=== PATIENT | female | born 1975 | race Caucasian/White ===

== ENCOUNTER 2017-04-21 20:33 | Emergency (ER) | payer OTHER ==
[2017-04-21 20:58] VITALS: BP 126/67; PULSE 65; TEMP 97.9; BMI 31.8
--- NOTE | 2017-04-21 22:02 | PDOC ---
Attending Attestation - Resident Resident Name: Zane Pereyra - ED Attending Attestation I have performed the following: I have examined & evaluated the patient, The case was reviewed & discussed with the resident, I agree w/resident's findings & plan, Exceptions are as noted - HPI HPI: 41 yo F presents with headache intermittently for the past 2 months. She states that she had a head injury 3 years ago where she fell and hit her head on ice. She states that since then, she has had headaches intermittently, usually occipital, bilateral, radiating to the temples B/L. She states that the headaches have been worse for the past 2 months, and now she has had eye pain associated with it, bilateral, but L>R. No vision changes. +Photophobia. No phonophobia. No neck stiffness. Headaches are not associated with weather changes or stress. - Physicial Exam PE: GENERAL: Awake, alert, and fully oriented, in no acute distress HEAD: No signs of trauma EYES: PERRLA, EOMI, sclera anicteric, conjunctiva clear ENT: Auricles normal inspection, hearing grossly normal, nares patent, oropharynx clear without exudates. Moist mucosa NECK: Normal ROM, supple, no lymphadenopathy, JVD, or masses. +Soft tissue tenderness to the L trapezius muscle at the base and soft tissue tenderness to R cervical paraspinal region. LUNGS: Breath sounds equal, clear to auscultation bilaterally. No wheezes, and no crackles HEART: Regular rate and rhythm, normal S1 and S2, no murmurs, rubs or gallops ABDOMEN: Soft, nontender, normoactive bowel sounds. No guarding, no rebound. No masses EXTREMITIES: Normal range of motion, no edema. No clubbing or cyanosis. No cords, erythema, or tenderness NEUROLOGICAL: Cranial nerves II through XII grossly intact. Normal speech, normal gait. Motor and sensation intact. SKIN: Warm, Dry, normal turgor, no rashes or lesions noted. - Medical Decision Making DDx includes tension headache, migraine headache, cluster headache, and postconcussive syndrome. Will obtain CTH, as the headache has recently worsened , would like to r/o any mass or mass effect. If neg, will treat symptomatically and likely DC home with neuro f/u.
--- NOTE | 2017-04-21 22:59 | PDOC ---
History of Present Illness - General History Source: Patient Exam Limitations: No Limitations, Language Barrier - History of Present Illness Initial Comments: 04/21/17 22:45 41F with pmh of fall on back of head 3 years ago and chronic nocturnal headaches since then presents with 6-7/10 headache exacerbation for the past two weeks with occipital pain, pain behind the eyes, tinnitus, back pain and visual changes during the headaches. No pcp seen due to lack of insurance. 04/22/17 01:48 <Zane Pereyra - Last Filed: 04/22/17 01:56> <Leigh Ann Mesa - Last Filed: 04/22/17 02:12> - General Chief Complaint: Pain Stated Complaint: HEAD/NECK PROBLEM Time Seen by Provider: 04/21/17 21:54 Past History - Past Medical History Other medical history: Pt denies - Psycho/Social/Smoking Cessation Hx Suicidal Ideation: No Smoking History: Never smoked Have you smoked in the past 12 months: No Information on smoking cessation initiated: No Hx Alcohol Use: No Drug/Substance Use Hx: No Substance Use Type: None <Zane Pereyra - Last Filed: 04/22/17 01:56> <Leigh Ann Mesa - Last Filed: 04/22/17 02:12> - Past Medical History Allergies/Adverse Reactions: Allergies Allergy/AdvReac Type Severity Reaction Status Date / Time Penicillins Allergy Verified 04/21/17 20:54 Home Medications: Ambulatory Orders NK [No Known Home Medication] 05/14/16 Review of Systems - Review of Systems Constitutional: No: Symptoms Reported HEENTM: Yes: See HPI Respiratory: No: Symptoms reported Cardiac (ROS): No: Symptoms Reported ABD/GI: No: Symptoms Reported : No: Symptoms Reported Musculoskeletal: Yes: See HPI Integumentary: No: Symptoms Reported Neurological: Yes: See HPI <Zane Pereyra - Last Filed: 04/22/17 01:56> *Physical Exam - Vital Signs Last Vital Signs Temp Pulse Resp BP Pulse Ox 97.9 F 65 18 126/67 100 04/21/17 20:54 04/21/17 20:54 04/21/17 20:54 04/21/17 20:54 04/21/17 20:54 - Physical Exam General Appearance: Yes: Nourished, Appropriately Dressed. No: Apparent Distress HEENT: positive: EOMI, SHARRON Neck: positive: Tender Respiratory/Chest: positive: Lungs Clear, Normal Breath Sounds. negative: Chest Tender Cardiovascular: positive: Regular Rhythm, Regular Rate, S1, S2 Gastrointestinal/Abdominal: positive: Normal Bowel Sounds, Soft. 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 NML intact, Fully Oriented, Alert <Zane Pereyra - Last Filed: 04/22/17 01:56> - Vital Signs Last Vital Signs Temp Pulse Resp BP Pulse Ox 97.9 F 65 18 126/67 100 04/21/17 20:54 04/21/17 20:54 04/21/17 20:54 04/21/17 20:54 04/21/17 20:54 <Leigh Ann Mesa - Last Filed: 04/22/17 02:12> ED Treatment Course - ADDITIONAL ORDERS Additional order review: Laboratory Results 04/21/17 04/21/17 23:20 23:20 Urine Color Colorless Urine Appearance Clear Urine pH 6.0 Urine Protein Negative Urine Glucose (UA) Negative Urine Ketones Negative Urine Blood 3+ H Urine Nitrite Negative Urine Bilirubin Negative Urine Urobilinogen Negative Ur Leukocyte Esterase Negative Urine RBC 2 Urine WBC <1 Ur Epithelial Cells Rare Urine HCG, Qual Negative - Medications Given in the ED: ED Medications Discontinued Medications Generic Name Dose Route Start Last Admin Trade Name Freq PRN Reason Stop Dose Admin Sodium Chloride 1,000 mls @ 1,000 mls/hr 04/22/17 00:20 04/22/17 00:45 Normal Saline - IV 04/22/17 01:19 1,000 mls/hr ASDIR STA Administration Ketorolac Tromethamine 30 mg 04/22/17 00:20 04/22/17 00:45 Toradol Injection - IVPUSH 04/22/17 00:21 30 mg ONCE ONE Administration Metoclopramide HCl 10 mg 04/22/17 00:20 04/22/17 00:45 Reglan Injection - IVPB 04/22/17 00:21 10 mg ONCE ONE Administration <Leigh Ann Mesa - Last Filed: 04/22/17 02:12> Medical Decision Making - Medical Decision Making 04/22/17 01:49 41F with chronic headaches presents with exacerbated headache. CT head neg NS + metoclopramide + ketorolac. chronic concussive syndrome vs IIH PAtient symptoms gone with treatment F/u with opthtalmologist and neurologist <Zane Pereyra - Last Filed: 04/22/17 01:56> *DC/Admit/Observation/Transfer - Discharge Dispostion Admit: No <Zane Pereyra - Last Filed: 04/22/17 01:56> - Discharge Dispostion Admit: No <Leigh Ann Mesa - Last Filed: 04/22/17 02:12> Diagnosis at time of Disposition: Post concussive syndrome - Discharge Dispostion Disposition: HOME Condition at time of disposition: Improved - Patient Instructions Printed Discharge Instructions: Postconcussion Syndrome
[2017-04-21 23:10] LABS: URINE APPEARANCE CLEAR; URINE BILIRUBIN NEGATIVE (NEGATIVE); URINE BLOOD 3+ (NEGATIVE); URINE COLOR COLORLESS; URINE GLUCOSE (UA) NEGATIVE (NEGATIVE); URINE KETONE NEGATIVE (NEGATIVE); URINE LEUK ESTERASE NEGATIVE (NEGATIVE); URINE NITRITE NEGATIVE (NEGATIVE); URINE PROTEIN NEGATIVE (NEGATIVE); URINE UROBILINOGEN NEGATIVE mg/dL (0.2-1.0)
[2017-04-21 23:26] LABS: URINE RBC 2 /hpf (0-3); URINE WBC <1 /hpf (3-5)
[2017-04-22] MEDS ORDERED: SODIUM CHLORIDE 1,000 ML IV STA (00:20)
[2017-04-22] MEDS ORDERED: KETOROLAC TROMETHAMINE 30 MG/1 ML VIAL IVPUSH ONE (00:20)
[2017-04-22] MEDS ORDERED: METOCLOPRAMIDE HCL INJECTION 10 MG/2 ML VIAL IVPB ONE (00:20)
[2017-04-22] MEDS ORDERED: KETOROLAC TROMETHAMINE 30 MG/1 ML VIAL ONE (00:28)
[2017-04-22] MEDS ORDERED: METOCLOPRAMIDE HCL INJECTION 10 MG/2 ML VIAL ONE (00:28)
== END 2017-04-22 02:19 | disposition home or self-care (01) ==
LOC: JER 20:33
PROC: 3E0333Z Introduction of Anti-inflammatory into Peripheral Vein, Percutaneous Approach (ICD-10-PCS; principal; 2017-04-21)
PROC: 3E033GC Introduction of Other Therapeutic Substance into Peripheral Vein, Percutaneous Approach (ICD-10-PCS; 2017-04-21)
DX: F07.81 Postconcussional syndrome (principal); G44.329 Chronic post-traumatic headache, not intractable; T14.90 Injury, unspecified; W00.0XXS Fall on same level due to ice and snow, sequela
CPT/HCPCS: 70450-TC; 81003; 81015; 84703; 96374; 96375; 99282-25

== ENCOUNTER 2018-02-26 20:46 | Emergency (ER) | payer OTHER ==
[2018-02-26 21:03] VITALS: BP 122/66; PULSE 66; TEMP 98.4; BMI 32.5
--- NOTE | 2018-02-26 21:03 | PDOC ---
Rapid Medical Evaluation Time Seen by Provider: 02/26/18 20:59 Medical Evaluation: Allergies Allergy/AdvReac Type Severity Reaction Status Date / Time Penicillins Allergy Verified 04/21/17 20:54 02/26/18 20:59 I have performed a brief in-person evaluation of this patient. The patient presents with a chief complaint of: occipital headache for 4 months Pertinent physical exam findings: Muscle spasm to left SCM. CN2-12 grossly intact. Gait steady. I have ordered the following: urine The patient will proceed to the ED for further evaluation. Discharge Disposition - Diagnosis Headache - Referrals - Patient Instructions - Post Discharge Activity
--- NOTE | 2018-02-26 23:00 | PDOC ---
History of Present Illness - General History Source: Patient Exam Limitations: No Limitations - History of Present Illness Initial Comments: 02/26/18 23:14 The patient is a 42 year old female, with no significant past medical history, who presents to the emergency department with, 4 months of progressively worsening intermittent left sided headache. The patient describes the headache as a sharp stabbing pain with associated throbbing/ squeezing sensation and associated photophobia. The patient also endorses nausea without emesis and dizziness secondary to the intermittent left sided headaches. The patient states that approx 3 years ago she fell on ice and hit her head. The patient states she was evaluated at that time and had a head CT which was negative. The patient states that 1 year after the fall she began having the intermittent left sided headaches. The patient also endorses intermittent ringing/ beeping sensation in her left ear, blurry vision, subjective fever/ chills, neck and back spasms, cramping in hands/ feet. The patient states she takes 2 extra strength Tylenols for the headaches with relief for one hour before the headaches return. The patient states she is currently working with a social work specialist to see a Neurologist and has an appointment on March 09. The patient denies chest pain, shortness of breath, weakness, loss of sensation , vomit, diarrhea and constipation. Denies dysuria, frequency, urgency and hematuria. Allergies: penicillins Social history: Denies EtOH use, tobacco use or recreational drug use. <Evan Bran - Last Filed: 02/26/18 23:14> - General History Source: Patient <HanyJorge hastings - Last Filed: 02/27/18 00:16> - General Chief Complaint: Head/Neck problem Stated Complaint: PAIN Time Seen by Provider: 02/26/18 20:59 Past History <Evan Bran - Last Filed: 02/26/18 23:14> - Past Medical History COPD: No - Suicide/Smoking/Psychosocial Hx Smoking History: Never smoked Have you smoked in the past 12 months: No Hx Alcohol Use: No Drug/Substance Use Hx: No Substance Use Type: None <Jorge Manzanares - Last Filed: 02/27/18 00:16> - Past Medical History Allergies/Adverse Reactions: Allergies Allergy/AdvReac Type Severity Reaction Status Date / Time Penicillins Allergy Verified 02/26/18 21:03 Home Medications: Ambulatory Orders Acetaminophen [Tylenol] 650 mg PO DAILY 02/26/18 Ibuprofen 800 mg PO TID #30 tablet 02/27/18 Metoclopramide HCl [Reglan -] 10 mg PO TID #30 tablet 02/27/18 Review of Systems - Review of Systems Comments:: 02/26/18 23:15 CONSTITUTIONAL: Present: +Subjective fever and chills. Absent: no fatigue EYES: Present: +Blurry vision. +Photophobia. ENT: Present: +Left ear ringing/ beeping sensation Absent: ear pain, no sore throat CARDIOVASCULAR: Absent: chest pain, no palpitations RESPIRATORY: Absent: cough, no SOB GI: Present: +Nausea Absent: abdominal pain, no vomiting, no constipation, no diarrhea GENITOURINARY: Absent: dysuria, no frequency, no hematuria MUSKULOSKELETAL: Present: +Neck and back spasms. +Cramping hands and feet. Absent: back pain, no arthralgia SKIN: Absent: rash NEURO: Present: +Left sided headache. +Dizziness. <Evan Bran - Last Filed: 02/26/18 23:14> *Physical Exam - Vital Signs Last Vital Signs Temp Pulse Resp BP Pulse Ox 98.4 F 66 18 122/66 100 02/26/18 21:00 02/26/18 21:00 02/26/18 21:00 02/26/18 21:00 02/26/18 21:00 - Physical Exam Comments: 02/26/18 23:17 GENERAL: Well developed, well nourished. Awake and alert. No acute distress. HEENT: Normocephalic, atraumatic. PERRLA, EOMI. No conjunctival pallor. Sclera are non- icteric. Moist mucous membranes. Oropharynx is clear. NECK: Supple. Full ROM. No JVD. Carotid pulses 2+ and symmetric, without bruits. No thyromegaly. No lymphadenopathy. CARDIOVASCULAR: Regular rate and rhythm. No murmurs, rubs, or gallops. Distal pulses are 2+ and symmetric. PULMONARY: No evidence of respiratory distress. Lungs clear to auscultation bilaterally. No wheezing, rales or rhonchi. ABDOMINAL: Soft. Non-tender. Non-distended. No rebound or guarding. No organomegaly. Normoactive bowel sounds. MUSCULOSKELETAL Normal range of motion at all joints. No bony deformities or tenderness. No CVA tenderness. EXTREMITIES: No cyanosis. No clubbing. No edema. No calf tenderness. SKIN: Warm and dry. Normal capillary refill. No rashes. No jaundice. NEUROLOGICAL: Alert, awake, appropriate. Cranial nerves 2-12 intact. No deficits to light touch and temperature in face, upper extremities and lower extremities. No motor deficits in the in face, upper extremities and lower extremities. Normoreflexic in the upper and lower extremities. Normal speech. Toes are down- going bilaterally. Gait is normal without ataxia. PSYCHIATRIC: Cooperative. Good eye contact. Appropriate mood and affect. <Evan Bran - Last Filed: 02/26/18 23:14> - Vital Signs Last Vital Signs Temp Pulse Resp BP Pulse Ox 98.4 F 66 18 122/66 100 02/26/18 21:00 02/26/18 21:00 02/26/18 21:00 02/26/18 21:00 02/26/18 21:00 <Jorge Manzanares - Last Filed: 02/27/18 00:16> ED Treatment Course - ADDITIONAL ORDERS Additional order review: Laboratory Results 02/26/18 21:20 Urine HCG, Qual Negative <Evan Bran - Last Filed: 02/26/18 23:14> - ADDITIONAL ORDERS Additional order review: Laboratory Results 02/26/18 21:20 Urine HCG, Qual Negative <Jorge Manzanares - Last Filed: 02/27/18 00:16> Medical Decision Making - Medical Decision Making 02/27/18 00:14 Dr. Manzanares: The scribe's documentation has been prepared under my direction and personally reviewed by me in its entirery. I confirm that the note above accurately reflects all work, treatment, procedures, and medical decision making performed by me. <Jorge Manzanares - Last Filed: 02/27/18 00:16> *DC/Admit/Observation/Transfer - Attestations Scribe Attestion: 02/26/18 23:18 Documentation prepared by Evan Bran, acting as medical parasitologist for Jorge Manzanares DO. <Evan Bran - Last Filed: 02/26/18 23:14> - Discharge Dispostion Decision to Admit order: No <Jorge Manzaanres - Last Filed: 02/27/18 00:16> Diagnosis at time of Disposition: Headache Qualifiers: Headache chronicity pattern: chronic headache Intractability: not intractable - Discharge Dispostion Disposition: HOME Condition at time of disposition: Stable - Prescriptions Prescriptions: Ibuprofen 800 mg PO TID #30 tablet Metoclopramide HCl [Reglan -] 10 mg PO TID #30 tablet - Referrals Referrals: Reyes Broussard MD [Staff Physician] - - Patient Instructions Printed Discharge Instructions: DI for Headache Additional Instructions: take medication as directed. Follow up with your neurologist or the doctor referred to you here in the hospital. Print Language: BULGARIAN
[2018-02-26] MEDS ORDERED: METOCLOPRAMIDE HCL 10 MG TABLET (FP) PO ONE ×2 (23:09→23:41)
[2018-02-26] MEDS ORDERED: IBUPROFEN 400 MG TABLET (FP) PO ONE ×2 (23:09→23:40)
== END 2018-02-27 00:23 | disposition home or self-care (01) ==
LOC: JER 20:46
DX: R51 Headache (principal)
CPT/HCPCS: 70450-TC; 84703; 99281-25

== ENCOUNTER 2018-09-17 14:00 | Emergency (ER) | payer OTHER ==
--- NOTE | 2018-09-17 14:11 | PDOC ---
Rapid Medical Evaluation Time Seen by Provider: 09/17/18 14:07 Medical Evaluation: Allergies Allergy/AdvReac Type Severity Reaction Status Date / Time Penicillins Allergy Verified 03/11/18 21:29 09/17/18 14:07 I performed a brief in-person evaluation of this patient. Briefly, this is a 42-year-old female with a history of kidney stones who presents complaining of one month of left-sided back pain. She reports that the pain is "in the bone" rather than the kidney. Pertinent physical exam findings: Left paraspinal tenderness at L5/S1 level, no flank tenderness I have ordered the following: UA/culture, urine The patient will proceed to the ED for further evaluation. Discharge Disposition - Diagnosis Back pain Qualifiers: Back pain location: low back pain Chronicity: acute Back pain laterality: left Sciatica presence: without sciatica Qualified Code(s): M54.5 - Low back pain - Discharge Dispostion Condition at time of disposition: Stable - Referrals - Patient Instructions - Post Discharge Activity
[2018-09-17 14:12] VITALS: BP 110/56; PULSE 64; TEMP 98.1; BMI 32.8
--- NOTE | 2018-09-17 14:40 | PDOC ---
Attending Attestation - HPI HPI: 09/17/18 15:03 The patient is a 42 year old female, with a significant past medical history of kidney stones, who presents to the emergency department with LT sided lower back pain, persisting for 1 month. The patient reports the back pain as intermittent, with a 9/10 severity at its worst. The patient reports the back pain is worse at night and is exacerbated by walking. The patient notes she experiences subjective fever with the back pain. The patient denies chest pain, shortness of breath, headache and dizziness. The patient denies, chills, nausea, vomit, diarrhea and constipation. The patient denies dysuria, frequency, urgency and hematuria. Allergies: Penicillins - Medical Decision Making 09/17/18 15:05 Documentation prepared by Trish Hutchinson, acting as medical affairs specialist for Liliana Crockett MD <Trish Hutchinson - Last Filed: 09/17/18 15:05> - Physicial Exam PE: 09/17/18 16:10 GENERAL: Awake, alert, and fully oriented, in no acute distress HEAD: No signs of trauma EYES: PERRLA, EOMI, sclera anicteric, conjunctiva clear ENT: Auricles normal inspection, hearing grossly normal, nares patent, oropharynx clear without exudates. Moist mucosa NECK: Normal ROM, supple, no lymphadenopathy, JVD, or masses LUNGS: Breath sounds equal, clear to auscultation bilaterally. No wheezes, and no crackles HEART: Regular rate and rhythm, normal S1 and S2, no murmurs, rubs or gallops ABDOMEN: Soft, nontender, normoactive bowel sounds. No guarding, no rebound. No masses MUSKULOSKELETAL: ambulatory. + paraspinal lumbar tenderness. no bony process tenderness. EXTREMITIES: +Full ROM at hip and knee. Normal range of motion, no edema. No clubbing or cyanosis. No cords, erythema, or tenderness NEUROLOGICAL: Cranial nerves II through XII grossly intact. Normal speech, normal gait SKIN: Warm, Dry, normal turgor, no rashes or lesions noted. Documentation prepared by Zenaida Ramirez, acting as medical affairs specialist for Liliana Crockett MD, <Zenaida Ramirez - Last Filed: 09/17/18 16:15>
[2018-09-17 14:48] LABS: HCG,QUALITATIVE URINE Negative
--- NOTE | 2018-09-17 15:29 | PDOC ---
History of Present Illness - General Chief Complaint: Pain, Acute Stated Complaint: BACK PAIN Time Seen by Provider: 09/17/18 14:07 History Source: Patient, Family Exam Limitations: Language Barrier ([place] Arabian speaker, limited Wolof) - History of Present Illness Initial Comments: Patient is a 42 y/o F w/ PMHx kidney stones, p/w 1 month gradual onset left- sided lower back pain. No known specific inciting event or trauma. Pain is alternately "burning" and "feels like it's in the bone," follows waxing and waning course w/ 9/10 severity at worst. No radiation. Pain is particularly severe at night and associated with subjective fevers. No alleviating factors, made worse by walking. Patient has attempted self-treatment with tylenol and topical analgesics with no relief. Patient additionally reports 6lbs weight loss during this interval, but this was intentional. Patient states the pain is unlike prior episodes of kidney stones. ROS otherwise negative throughout. Patient works part-time in a [employer] and has not had to take time off from work d/t pain. UA/UCx/qual hCG sent at time of encounter. Reports her PMD is based at [facility] but does not recall his name. 09/17/18 15:25 09/17/18 15:29 09/17/18 15:30 Past History - Travel Traveled outside of the country in the last 30 days: No Close contact w/someone who was outside of country & ill: No - Past Medical History Allergies/Adverse Reactions: Allergies Allergy/AdvReac Type Severity Reaction Status Date / Time Penicillins Allergy Verified 03/11/18 21:29 Home Medications: Ambulatory Orders Ibuprofen 600 mg PO TID #15 tablet 09/17/18 COPD: No - Suicide/Smoking/Psychosocial Hx Smoking History: Never smoked Have you smoked in the past 12 months: No Information on smoking cessation initiated: No Hx Alcohol Use: No Drug/Substance Use Hx: No Substance Use Type: None Review of Systems - Review of Systems Comments:: As per HPI 09/17/18 15:30 *Physical Exam - Vital Signs Last Vital Signs Temp Pulse Resp BP Pulse Ox 98.1 F 64 16 110/56 L 100 09/17/18 14:08 09/17/18 14:08 09/17/18 14:08 09/17/18 14:08 09/17/18 14:08 09/17/18 15:31 - Physical Exam Comments: Gen: A&Ox3, NAD HEENT: PERRLA, EOMI, MMM Neck: supple, no LAD, no JVD CV: RRR no m/r/g Resp: CTA b/l Abd: +bs, soft, NT, ND MSK: negative straight leg raise testing b/l, focal tenderness overlying L5/S1 as well as left paraspinal region extending to flank but not to ventral aspect; denies any circumferential pain Extremities: 2+ pulses, wwp, no edema, no calf tenderness 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, 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, 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 Psych: normal mood, normal affect Skin: warm, dry, normal turgor 09/17/18 15:31 Moderate Sedation - Procedure Monitoring Vital Signs: Procedure Monitoring Vital Signs Temperature 98.1 F 09/17/18 14:08 Pulse Rate 64 09/17/18 14:08 Respiratory Rate 16 09/17/18 14:08 Blood Pressure 110/56 L 09/17/18 14:08 O2 Sat by Pulse Oximetry (%) 100 09/17/18 14:08 ED Treatment Course - ADDITIONAL ORDERS Additional order review: Laboratory Results 09/17/18 14:29 Urine HCG, Qual Negative - RADIOLOGY Radiology Studies Ordered: Category Date Time Status SPINE-LUMBAR SACRAL [RAD] Stat Radiology 09/17/18 15:01 Ordered Medical Decision Making - Medical Decision Making DDx includes paraspinal muscle strain, hip/pelvic muscle strain, compression fracture, kidney stone, UTI, stenosis, as well as (much less likely) neoplasm. Concerning features include nighttime pain and subjective fever. Weight loss is reported to be intentional d/t reduced carbohydrate intake. Lumbosacral XR ordered. 09/17/18 15:44 Spine/Hip/Pelvis XR is negative 09/17/18 17:13 *DC/Admit/Observation/Transfer Diagnosis at time of Disposition: Back pain Qualifiers: Back pain location: low back pain Chronicity: acute Back pain laterality: left Sciatica presence: without sciatica Qualified Code(s): M54.5 - Low back pain - Discharge Dispostion Disposition: HOME Condition at time of disposition: Stable - Referrals - Patient Instructions Printed Discharge Instructions: DI for Low Back Pain - Post Discharge Activity
[2018-09-17 15:39] LABS: URINE APPEARANCE CLEAR; URINE BILIRUBIN NEGATIVE (<2.0 mg/dL); URINE COLOR LTYELLOW; URINE GLUCOSE (UA) NEGATIVE (NEGATIVE); URINE KETONE NEGATIVE (NEGATIVE); URINE LEUK ESTERASE NEGATIVE (NEGATIVE); URINE NITRITE NEGATIVE (NEGATIVE); URINE PROTEIN NEGATIVE (NEGATIVE); URINE UROBILINOGEN NEGATIVE mg/dL (0.2-1.0)
[2018-09-17 15:47] LABS: EPI CELLS RARE /HPF (FEW); URINE MUCUS RARE
== END 2018-09-17 18:00 | disposition home or self-care (01) ==
LOC: JER 14:00
DX: M54.5 Low back pain (principal); Z87.442 Personal history of urinary calculi
CPT/HCPCS: 72100-TC-FY; 73523-TC-FY; 81003; 81015; 84703; 87086; 99282-25

== ENCOUNTER 2018-12-03 19:10 | Emergency (ER) | payer OTHER ==
[2018-12-03 19:50] VITALS: BP 112/93; PULSE 72; TEMP 97.8; BMI 29.2
--- NOTE | 2018-12-03 19:53 | PDOC ---
Rapid Medical Evaluation Chief Complaint: Pain Medical Evaluation: Allergies Allergy/AdvReac Type Severity Reaction Status Date / Time Penicillins Allergy Verified 03/11/18 21:29 12/03/18 19:50 I have performed a brief in-person evaluation of this patient. The patient presents with a chief complaint of: worsening pain to neck over past 2 weeks= denies fevers/ worsen pain to neck. denmi Pertinent physical exam findings: alertl, mildly nervous but good historian and appears nervous I have ordered the following: nothing The patient will proceed to the ED for further evaluation. 12/03/18 19:53
[2018-12-03] MEDS ORDERED: METOCLOPRAMIDE HCL INJECTION 10 MG/2 ML VIAL IVPB ONE (20:34)
[2018-12-03] MEDS ORDERED: SODIUM CHLORIDE 1,000 ML IV STA (20:35)
--- NOTE | 2018-12-03 20:35 | PDOC ---
History of Present Illness - General Chief Complaint: Pain Stated Complaint: PAIN Time Seen by Provider: 12/03/18 19:53 History Source: Patient Exam Limitations: Language Barrier (Cyracom used) Past History - Travel Traveled outside of the country in the last 30 days: No Close contact w/someone who was outside of country & ill: No - Past Medical History Allergies/Adverse Reactions: Allergies Allergy/AdvReac Type Severity Reaction Status Date / Time Penicillins Allergy Verified 12/03/18 19:50 Home Medications: Ambulatory Orders Acetaminophen [Tylenol -] 325 mg PO Q4H 12/03/18 Ibuprofen 600 mg PO Q6H #30 tablet 12/03/18 COPD: No - Suicide/Smoking/Psychosocial Hx Smoking History: Never smoked Have you smoked in the past 12 months: No Information on smoking cessation initiated: No Hx Alcohol Use: No Drug/Substance Use Hx: No Substance Use Type: None Review of Systems - Review of Systems Able to Perform ROS?: Yes Comments:: 12/03/18 23:21 CONSTITUTIONAL: Absent: fever, chills, diaphoresis, generalized weakness, malaise, loss of appetite HEENT: Absent: rhinorrhea, nasal congestion, throat pain, throat swelling, difficulty swallowing, mouth swelling, ear pain, eye pain, visual Changes CARDIOVASCULAR: Absent: chest pain, loss of consciousness, palpitations, irregular heart rate, peripheral edema RESPIRATORY: Absent: cough, shortness of breath, dyspnea with exertion, orthopnea, wheezing, stridor, hemoptysis GASTROINTESTINAL: Absent: abdominal pain, abdominal distension, nausea, vomiting, diarrhea, constipation, melena, hematochezia GENITOURINARY: Absent: dysuria, frequency, urgency, hesitancy, hematuria, flank pain, genital pain MUSCULOSKELETAL: Absent: myalgia, arthralgia, joint swelling SKIN: Absent: rash, itching, pallor HEMATOLOGIC/IMMUNOLOGIC: Absent: easy bleeding, easy bruising, lymphadenopathy, frequent infections ENDOCRINE: Absent: unexplained weight gain, unexplained weight loss, heat intolerance, cold intolerance NEUROLOGIC: Present: headache Absent: focal weakness or paresthesias, dizziness, unsteady gait, seizure, mental status changes, bladder or bowel incontinence PSYCHIATRIC: Absent: anxiety, depression, suicidal or homicidal ideation, hallucinations. Is the patient limited Telugu proficient: No *Physical Exam - Vital Signs Last Vital Signs Temp Pulse Resp BP Pulse Ox 97.8 F 72 18 112/93 100 12/03/18 19:45 12/03/18 19:45 12/03/18 19:45 12/03/18 19:45 12/03/18 19:45 - Physical Exam Comments: 12/03/18 23:21 GENERAL: Well developed, well nourished. Awake and alert. No acute distress. HEENT: Normocephalic, atraumatic. PERRLA, EOMI. No conjunctival pallor. Sclera are non- icteric. Moist mucous membranes. Oropharynx is clear. NECK: Supple. Full ROM. No JVD. Carotid pulses 2+ and symmetric, without bruits. No thyromegaly. No lymphadenopathy. SKIN: Warm and dry. Normal capillary refill. No rashes. No jaundice. NEUROLOGICAL: Alert, awake, appropriate. Cranial nerves 2-12 intact. No deficits to light touch and temperature in face, upper extremities and lower extremities. No motor deficits in the in face, upper extremities and lower extremities. Normoreflexic in the upper and lower extremities. Normal speech. Toes are down- going bilaterally. Gait is normal without ataxia. PSYCHIATRIC: Cooperative. Good eye contact. Appropriate mood and affect. Medical Decision Making - Medical Decision Making 12/03/18 23:23 HPI: The patient is a 43-year-old female with past medical history of headaches , who presents to the ER today for worsening headache for the past day and a half. She states that she feels like a stabbing pain to the back head. She says that her headache started 4 years ago after she slipped and fell on black ice. Denies loss of consciousness, dizziness, lightheadedness, vomiting, difficulty breathing and shortness of breath. She took Tylenol at home without relief of her symptoms. A/P: Headache Patient with history of headaches however states his headache is worse than usual. CT head ordered; no acute pathology. Unchanged since her CT in January 2018. Reglan, Benadryl and Toradol given with relief of symptoms. Postconcussive syndrome? Discharge home with neuro follow-up. I discussed the physical exam findings, ancillary test results and final diagnoses with the patient. I answered all of the patient's questions. The patient was satisfied with the care received and felt comfortable with the discharge plan and treatment plan. The Patient agrees to follow up with the primary care physician/specialist within 24-72 hours. Return precautions were given. *DC/Admit/Observation/Transfer Diagnosis at time of Disposition: Headache Qualifiers: Headache type: unspecified Headache chronicity pattern: unspecified pattern Intractability: not intractable Qualified Code(s): R51 - Headache - Discharge Dispostion Disposition: HOME Condition at time of disposition: Stable Decision to Admit order: No - Prescriptions Prescriptions: Ibuprofen 600 mg PO Q6H #30 tablet - Referrals Referrals: Juan Pablo Banda DO [Staff Physician] - - Patient Instructions Printed Discharge Instructions: DI for Migraine Additional Instructions: You were evaluated for your headache Your CT scan was normal Please continue to follow up with neurology for your headaches You may take Motrin as needed, 600mg every 6 hours, not to exceed 3,000mg Follow up with your neurologist Return to the ED for any new or worsening symptoms - Post Discharge Activity Forms/Work/School Notes: Back to Work
[2018-12-03] MEDS ORDERED: METOCLOPRAMIDE HCL INJECTION 10 MG/2 ML VIAL ONE (20:42)
[2018-12-03] MEDS ORDERED: KETOROLAC TROMETHAMINE 30 MG/1 ML VIAL IVPUSH ONE (22:59)
[2018-12-03] MEDS ORDERED: KETOROLAC TROMETHAMINE 30 MG/1 ML VIAL ONE (23:00)
== END 2018-12-03 23:06 | disposition home or self-care (01) ==
LOC: JERFT 19:10
PROC: 3E0337Z Introduction of Electrolytic and Water Balance Substance into Peripheral Vein, Percutaneous Approach (ICD-10-PCS; principal; 2018-12-03)
PROC: 3E0333Z Introduction of Anti-inflammatory into Peripheral Vein, Percutaneous Approach (ICD-10-PCS; 2018-12-03)
PROC: 3E033GC Introduction of Other Therapeutic Substance into Peripheral Vein, Percutaneous Approach (ICD-10-PCS; 2018-12-03)
PROC: 3E033GC Introduction of Other Therapeutic Substance into Peripheral Vein, Percutaneous Approach (ICD-10-PCS; 2018-12-03)
DX: R51 Headache (principal)
CPT/HCPCS: 70450-TC; 84703; 99281-25; J7030

== ENCOUNTER 2019-02-08 14:39 | Emergency (ER) | payer SELFPAY, OTHER | END 2019-02-08 16:25 | disposition home or self-care (01) | LOC: JERFT 14:39 ==

== ENCOUNTER 2023-05-20 15:33 | Emergency (ER) | payer OTHER ==
[2023-05-20 15:39] VITALS: BP 95/61; PULSE 60; RESP 20; TEMP 98.5; BMI 41.8
[2023-05-20] MEDS ORDERED: KETOROLAC TROMETHAMINE 30 MG/1 ML VIAL IM ONE (16:01)
[2023-05-20] MEDS ORDERED: KETOROLAC TROMETHAMINE 30 MG/1 ML VIAL ONE (16:06)
== END 2023-05-20 17:09 | disposition home or self-care (01) ==
LOC: JERFT 15:33
PROC: 3E0233Z Introduction of Anti-inflammatory into Muscle, Percutaneous Approach (ICD-10-PCS; principal; 2023-05-20)
DX: M25.572 Pain in left ankle and joints of left foot (principal); M79.672 Pain in left foot
CPT/HCPCS: 73610-TC-LT-FY; 73630-TC-LT; 99284-25

== ENCOUNTER 2023-11-01 14:48 | Observation (INO) | payer OTHER ==
[2023-11-01] MEDS: SODIUM CHLORIDE 1,000 ML IV SCH (15:22)
[2023-11-01 15:45] LABS: BASO % 0.6 % (0-2.0); EOS % 3.3 % (0-4.5); HEMATOCRIT 41.4 % (32.4-45.2); HEMOGLOBIN 13.8 GM/dL (10.7-15.3); LYMPH % 35.5 % (8-40); MCH 27.9 pg (25.7-33.7); MCHC 33.2 g/dl (32.0-36.0); MEAN PLT VOLUME 9.5 fl (7.5-11.1); MONO % 5.7 % (3.8-10.2); NEUT % 54.9 % (42.8-82.8); PLATELET COUNT 258 10^3/uL (134-434); RBC 4.93 M/mm3 (3.60-5.2); RDW 15.8 % (11.6-15.6); WHITE BLOOD COUNT 11.5 K/mm3 (4.0-10.0)
[2023-11-01 15:52] LABS: INR 0.99 (0.83-1.09); PROTHROMBIN TIME (PATIENT) 11.5 SEC (9.7-13.0)
[2023-11-01 15:55] LABS: ACTIVATED PTT 23.6 SECONDS (25.2-36.5)
[2023-11-01 16:34] LABS: LACTIC ACID 2.3 mmol/L (0.4-2.0)
[2023-11-01 16:35] LABS: CHLORIDE 110 mmol/L (98-107); POTASSIUM 4.3 mmol/L (3.5-5.1); SODIUM 143 mmol/L (136-145)
[2023-11-01 16:36] LABS: CALCIUM 9.4 mg/dL (8.5-10.1)
[2023-11-01 16:37] LABS: ALBUMIN 3.3 g/dl (3.4-5.0); CO2 23 mmol/L (21-32)
[2023-11-01 16:38] LABS: BLOOD UREA NITROGEN 13.4 mg/dL (7-18); GLUCOSE,RANDOM 132 mg/dL (74-106)
[2023-11-01 16:40] LABS: CREATININE 0.7 mg/dL (0.55-1.3); SGOT/AST 26 U/L (15-37); SGPT/ALT 28 U/L (13-61)
[2023-11-01 16:42] LABS: CHOLESTEROL 198 mg/dL (50-200); TOT PROT 7.1 g/dl (6.4-8.2)
[2023-11-01 16:43] LABS: BILIRUBIN,TOTAL 0.4 mg/dL (0.2-1); LDL CHOLESTEROL (ONLY SJRH) 126 mg/dL (5-100)
[2023-11-01 16:44] LABS: ALK PHOS 80 U/L (45-117); HDL CHOLESTEROL 61 mg/dL (40-60)
[2023-11-01 16:45] LABS: VENOUS BASE EXCESS -1.5 mmol/L (-2-2); VENOUS PCO2 46.8 mmHg (38-52); VENOUS PH 7.339 (7.310-7.410)
[2023-11-01] MEDS ORDERED: METOCLOPRAMIDE HCL INJECTION 10 MG/2 ML VIAL ONE (16:54)
[2023-11-01] MEDS ORDERED: ACETAMINOPHEN INJECTION 100 ML IVPB ONE (16:54)
[2023-11-01] MEDS: METOCLOPRAMIDE HCL INJECTION 10 MG/2 ML VIAL IVPB ONE (17:10)
[2023-11-01] MEDS: ACETAMINOPHEN 1000 MG/100 ML BAG IVPB ONE (17:10)
[2023-11-01] MEDS: SODIUM CHLORIDE 0.9% 1000 ML INFUS.BAG IV ONE (17:10)
[2023-11-01] MEDS ORDERED: MECLIZINE HCL 25 MG TABLET (FP) ONE (18:19)
[2023-11-01] MEDS: MECLIZINE HCL 25 MG TABLET (FP) PO ONE (18:27)
[2023-11-01 18:40] LABS: EPI CELLS 22 /uL (0-25.1); HYALINE CASTS 2 /uL (0-3.1); URINE APPEARANCE CLOUDY; URINE BACTERIA 134 /uL (0-1359); URINE BILIRUBIN NEGATIVE (NEGATIVE); URINE COLOR YELLOW; URINE GLUCOSE (UA) NEGATIVE (NEGATIVE); URINE KETONE TRACE (NEGATIVE); URINE LEUK ESTERASE NEGATIVE (NEGATIVE); URINE NITRITE NEGATIVE (NEGATIVE); URINE PROTEIN TRACE (NEGATIVE); URINE RBC 13 /uL (0-23.9); URINE WBC 11 /uL (0-25.8)
[2023-11-01 18:46] LABS: COCAINE, UR NEGATIVE (NEGATIVE); METHADONE, UR NEGATIVE (NEGATIVE); PHENCYCLIDINE,URINE NEGATIVE (NEGATIVE); URINE AMPHETAMINES NEGATIVE (NEGATIVE)
[2023-11-01 18:47] LABS: OPIATES, URI NEGATIVE (NEGATIVE); URINE BARBITURATES NEGATIVE (NEGATIVE); URINE BENZODIAZEPINES NEGATIVE (NEGATIVE)
[2023-11-01 21:31] LABS: URINE CRYSTALS MODERATE /hpf
[2023-11-01 22:02] LABS: ANION GAP 10 mmol/L (4-13)
[2023-11-01 22:35] LABS: PHOSPHOROUS 3.7 mg/dL (2.5-4.9)
[2023-11-02 01:36] VITALS: BMI 33.0
[2023-11-02] MEDS ORDERED: SODIUM CHLORIDE 1,000 ML IV SCH (02:30)
[2023-11-02 08:36] LABS: BASO % 0.5 % (0-2.0); EOS % 0.7 % (0-4.5); HEMATOCRIT 37.9 % (32.4-45.2); HEMOGLOBIN 12.5 GM/dL (10.7-15.3); LYMPH % 18.1 % (8-40); MCH 28.1 pg (25.7-33.7); MEAN PLT VOLUME 9.5 fl (7.5-11.1); MONO % 5.6 % (3.8-10.2); NEUT % 75.1 % (42.8-82.8); PLATELET COUNT 206 10^3/uL (134-434); RBC 4.46 M/mm3 (3.60-5.2); RDW 15.8 % (11.6-15.6); WHITE BLOOD COUNT 9.7 K/mm3 (4.0-10.0)
[2023-11-02 08:57] LABS: POTASSIUM 3.6 mmol/L (3.5-5.1)
[2023-11-02 08:59] LABS: ALBUMIN 2.9 g/dl (3.4-5.0); BLOOD UREA NITROGEN 9.6 mg/dL (7-18); CALCIUM 8.6 mg/dL (8.5-10.1); MAGNESIUM 2.2 mg/dL (1.8-2.4)
[2023-11-02 09:03] LABS: CREATININE 0.5 mg/dL (0.55-1.3)
[2023-11-02 09:04] LABS: BILIRUBIN,TOTAL 0.4 mg/dL (0.2-1); TOT PROT 6.4 g/dl (6.4-8.2)
[2023-11-02] MEDS: ENOXAPARIN NA (PORCINE) 40 MG/0.4 ML DISP.SYRIN SQ SCH (09:19)
[2023-11-02 10:03] VITALS: BP 102/49; PULSE 89; RESP 18; TEMP 98.2
== END 2023-11-02 13:17 | disposition home or self-care (01) ==
LOC: JER 14:48 → JERBED 19:28 → J6S 11-02 00:34
PROVIDERS: ADMIT Internal Medicine; ATTEND Internal Medicine
PROC: 3E023GC Introduction of Other Therapeutic Substance into Muscle, Percutaneous Approach (ICD-10-PCS; principal; 2023-11-01)
PROC: 3E033GC Introduction of Other Therapeutic Substance into Peripheral Vein, Percutaneous Approach (ICD-10-PCS; 2023-11-01)
PROC: 3E0337Z Introduction of Electrolytic and Water Balance Substance into Peripheral Vein, Percutaneous Approach (ICD-10-PCS; 2023-11-01)
DX: R41.82 Altered mental status, unspecified (principal); E86.0 Dehydration; R53.1 Weakness; N20.0 Calculus of kidney; G43.909 Migraine, unspecified, not intractable, without status migrainosus; Z88.0 Allergy status to penicillin
CPT/HCPCS: 36415; 70450-TC; 71045-TC-FY; 80053; 80061; 80307; 81003; 82550; 82803; 82962; 83036; 83605; 83735; 84100; 84484; 84703; 85025; 85610; 85730; 86850; 86900; 86901; 93005; 93010; 96361; 96372; 96374; 99285-25; G0378